=== PATIENT | male | born 1930 | race Caucasian/White ===

== ENCOUNTER 2018-07-27 07:57 | Emergency (ER) | payer MEDICARE, BC ==
[~2018-07-27] VITALS: Ht 175.3 cm; Wt 69.0 kg
[~2018-07-27 07:57] MED LIST: ALBU90OI61 INH; Amlodipine-Ben1 EAC3 PO; Aspir 8181 MG PO; BENAML10/2 PO; BETA.25.45 BOTHEYES; DIGESTIVE ENZY1 EACH PO; ERGO400 PO; Eye Drops15 ML; Glucosamine H1500 MG PO; MULVITMIND PO; Multiple Vitam1 EAC1 PO; Nexium40 MG PO; OMEG1CAP30; OMEG1CAP30 PO; OMEP20ER PO; Saw Palmetto160 MG PO
[2018-07-27 08:57] LABS: BASOPHILS ABSOLUTE AUTO 0.05 K/mm3 (0.00-0.23); BASOPHILS PERCENT AUTO 1 % (0-2); EOSINOPHILS ABSOLUTE AUTO 0.25 K/mm3 (0.00-0.68); EOSINOPHILS PERCENT AUTO 3 % (0-6); Hematocrit 40.3 % (37.0-53.0); Hemoglobin 13.4 g/dL (13.5-17.5); IMMATURE GRAN ABSOLUTE AUTO 0.05 K/mm3 (0.00-0.10); IMMATURE GRAN PERCENT AUTO 1 % (0-1); LYMPHOCYTES ABSOLUTE AUTO 1.01 K/mm3 (0.84-5.20); LYMPHOCYTES PERCENT AUTO 11 % (21-46); MONOCYTES ABSOLUTE AUTO 0.88 K/mm3 (0.16-1.47); MONOCYTES PERCENT AUTO 10 % (4-13); Mean Corpuscular HGB 31.1 pg (26.0-34.0); Mean Corpuscular HGB Conc 33.3 g/dL (31.5-36.5); Mean Corpuscular Volume 94 fL (80-100); Mean Platelet Volume 9.8 fL (9.1-12.4); NEUTROPHILS ABSOLUTE AUTO 7.03 K/mm3 (1.96-9.15); NEUTROPHILS PERCENT AUTO 76 % (41-73); Platelet Count 327 K/mm3 (150-400); RDW Coefficient Variation 13.2 % (11.7-14.2); RDW Standard Deviation 45.7 fL (35.1-46.3); Red Blood Cell Count 4.31 M/mm3 (4.30-5.90); White Blood Cell Count 9.27 K/mm3 (4.00-11.30)
[2018-07-27 09:22] LABS: Alanine Aminotransfer (ALT/SGP 31 U/L (12-78); Albumin, Blood 3.8 g/dL (3.4-5.0); Alk Phos 112 U/L (50-136); Anion Gap 8 mmol/L (6-16); Aspartate Aminotrans (AST/SGOT 24 U/L (12-37); Bilirubin, Total 0.8 mg/dL (0.1-1.0); Blood Urea Nitrogen 14 mg/dL (8-24); Bun/Creatinine Ratio 24.1 (12.0-20.0); CO2, Blood 28 mmol/L (21-32); Calcium, Blood 9.1 mg/dL (8.5-10.1); Chloride, Blood 97 mmol/L (98-108); Creatinine, Blood 0.58 mg/dL (0.60-1.20); Globulin, Blood 3.8 g/dL (2.2-4.0); Glomerular Filtration Rate >60 (60-); Glucose, Blood 102 mg/dL (70-99); Sodium, Blood 133 mmol/L (136-145); Total Protein, Blood 7.6 g/dL (6.4-8.2); Troponin I <0.015 ng/mL (0.000-0.040)
--- NOTE | 2018-07-27 10:35 | NUR ---
SPiritual care visit conducted. Patient is known to this machine sign writer. Patient was lying in bed and alert when I entered the room. Spouse, Racheal, was bedside and anxious. I provided a calming present, companionship and emotional support. Patient and Racheal responded well and showed signs of reduced stress.
== END 2018-07-27 10:28 | disposition home or self-care (01) ==
LOC: ER 07:57
PROVIDERS: Emergency Medicine
DX: G45.9 Transient cerebral ischemic attack, unspecified (principal); I10 Essential (primary) hypertension; Z88.0 Allergy status to penicillin; Z79.899 Other long term (current) drug therapy; Z79.82 Long term (current) use of aspirin
CPT/HCPCS: 36415; 70450; 80053; 84484; 85025; 93005; 93010; 99284-25

== ENCOUNTER 2019-05-03 06:04 | Day surgery (SDC) | payer MEDICARE, BC ==
[~2019-05-03] VITALS: Ht 175.3 cm; Wt 74.0 kg
[~2019-05-03 06:04] MED LIST changes: +CLOP75 PO; +ESOM20 PO; +HYDCHL25 PO; +LOSA50 PO
--- NOTE | 2019-05-03 10:45 | NUR ---
ARRIVAL TO ICU 1030 - PT ARRIVED AT THIS TIME FROM ALUMINUM SIDING MECHANIC. DENIES CHEST PAIN. FEMSTOP SECURED WITH NO DRESSING UNDER; WILL APPLY WHEN FEMSTOP REMOVED. TR BAND AND ARMBOARD SECURED ON R WRIST. PULSES PRESENT IN BLE AND R WRIST. BP ELEVATED WITH SBP 180S-190S. AFTER DIFFICULT INSERTION OF LAIRD CATHETER, BP DECREASED TO SBP 140-160. IV SALINE LOCKED. WILL CONTINUE TO MONITOR.
[2019-05-03 11:48] LABS: Source, Urine Catheter
[2019-05-03 11:56] LABS: Appearance, Urine Clear (Clear); Bilirubin, Urine Neg (Neg); Blood, Urine 5+ (Neg); Color, Urine Yellow (P-Yellow); Glucose Qualitative, Urine Neg (Neg); Ketones, Urine 1+ (Neg); Leukocyte Esterase, Urine Neg (Neg); Nitrite, Urine Neg (Neg); Protein, Urine Neg (Neg); Urobilinogen, Urine NORM (Normal)
[2019-05-03 12:05] LABS: Bacteria Few /hpf; Red Blood Cells, Urine 50-100 /hpf (0-2); Squamous Epithelial Cells Not Seen /hpf (Few); White Blood Cells, Urine 0-2 /hpf (0-5)
--- NOTE | 2019-05-03 13:40 | NUR ---
REASSESSMENT ATTEMPTED TO DEFLATE FEMSTOP BUT EACH TIME, THERE IS CONTINUAL OOZING FROM GROIN SITE. PT HAS DEVELOPED HEMATOMA BELOW FEMSTOP. THERE IS NO ABDOMINAL DISTENTION, HARDNESS, OR HEMATOMA IN LOWER ABDOMEN. ATTEMPTED TO DEFLATE TR BAND BUT CONTINUES TO OOZE. WILL CONTINUE TO MONITOR.
--- NOTE | 2019-05-03 15:56 | NUR ---
REASSESSMENT FEM STOP AND TR BAND REMOVED AT 1545. STABLE HEMATOMA UNDER ACCESS SITE ON R GROIN. CLEANED AND DRESSING APPLIED TO R GROIN AND R WRIST. TR BAND SECURED AND PT EDUCATED ON NOT MOVING R LEG OR R ARM. VSS. WILL CONTINUE TO MONITOR. PT CONTINUES TO DENY PAIN.
--- NOTE | 2019-05-03 18:07 | NUR ---
SHIFT SUMMARY PT NOW SITTING IN BED WITH HOB ELEVATED TO EAT DINNER. R GROIN SITE STABLE AND DRESSING REMAINS DRY AND INTACT. PEDAL PULSES PRESENT. R WRIST SITE CLEAN AND DRY WITH ARMBOARD SECURED. VISITING WITH SON AT BEDSIDE. VSS. WILL GIVE BEDSIDE, HANDOFF REPORT TO HERMINIA RN.
--- NOTE | 2019-05-03 19:32 | NUR ---
ASSUMED CARE OF PT AT 1910, STABLE, RIGHT WRIST AND RIGHT GROIN SITE WNL.
--- NOTE | 2019-05-04 07:04 | NUR ---
PT DENIES PAIN, SOB OR CHEST PAIN. LAIRD IN PLACE, VITAL SIGNS WNL, GROIN SITE DRY CLEAN INTACT, WRIST C/D/I. NO ACUTE EVENTS OVENIGHT WILL CONTINUE TO MONITOR
[2019-05-04] MEDS ORDERED: ASPI81CH PO (10:04)
== END 2019-05-04 11:06 | disposition home or self-care (01) ==
LOC: MHTC 06:04 → ICUE 10:17 → MHTC 10:43 → ICUE 10:43 → MHTC 05-04 11:06
PROVIDERS: Internal Medicine Interventional Cardiology
PROC: B241ZZ3 Ultrasonography of Multiple Coronary Arteries, Intravascular (ICD-10-PCS; principal; 2019-05-03)
PROC: 027135Z Dilation of Coronary Artery, Two Arteries with Two Drug-eluting Intraluminal Devices, Percutaneous Approach (ICD-10-PCS; principal; 2019-05-03)
DX: I35.0 Nonrheumatic aortic (valve) stenosis (principal); I10 Essential (primary) hypertension; Z79.02 Long term (current) use of antithrombotics/antiplatelets; Z79.899 Other long term (current) drug therapy; Z90.49 Acquired absence of other specified parts of digestive tract; Z86.73 Personal history of transient ischemic attack (TIA), and cerebral infarction without residual deficits; Z88.0 Allergy status to penicillin
CPT/HCPCS: 51703; 81001; 85347; 92920; 92978; 93454; 93571; 96372; 99152; 99153; C1725; C1753; C1760; C1769; C1874; C1887; C1894; C9600; G0378; J1644; J2250; J3010; J3246; J7030; Q9967

== ENCOUNTER 2019-09-02 14:50 | Emergency (ER) | payer MEDICARE, BC ==
[~2019-09-02] VITALS: Ht 170.2 cm; Wt 70.3 kg
[~2019-09-02 14:50] MED LIST changes: +ASPI81CH PO
[2019-09-02 16:44] LABS: BASOPHILS ABSOLUTE AUTO 0.03 K/mm3 (0.00-0.23); BASOPHILS PERCENT AUTO 0 % (0-2); EOSINOPHILS ABSOLUTE AUTO 0.36 K/mm3 (0.00-0.68); EOSINOPHILS PERCENT AUTO 5 % (0-6); Hematocrit 29.3 % (37.0-53.0); Hemoglobin 9.8 g/dL (13.5-17.5); IMMATURE GRAN ABSOLUTE AUTO 0.04 K/mm3 (0.00-0.10); IMMATURE GRAN PERCENT AUTO 1 % (0-1); LYMPHOCYTES ABSOLUTE AUTO 1.51 K/mm3 (0.84-5.20); LYMPHOCYTES PERCENT AUTO 21 % (21-46); MONOCYTES ABSOLUTE AUTO 0.78 K/mm3 (0.16-1.47); MONOCYTES PERCENT AUTO 11 % (4-13); Mean Corpuscular HGB 31.4 pg (26.0-34.0); Mean Corpuscular HGB Conc 33.4 g/dL (31.5-36.5); Mean Corpuscular Volume 94 fL (80-100); Mean Platelet Volume 10.4 fL (9.1-12.4); NEUTROPHILS ABSOLUTE AUTO 4.61 K/mm3 (1.96-9.15); NEUTROPHILS PERCENT AUTO 63 % (41-73); Platelet Count 219 K/mm3 (150-400); RDW Coefficient Variation 14.8 % (11.7-14.2); RDW Standard Deviation 49.5 fL (35.1-46.3); Red Blood Cell Count 3.12 M/mm3 (4.30-5.90); White Blood Cell Count 7.33 K/mm3 (4.00-11.30)
[2019-09-02 16:59] LABS: International Normalized Ratio 1.04; Prothrombin Time Results 11.1 Sec (9.7-11.5)
[2019-09-02 17:00] LABS: Anion Gap 4 mmol/L (6-16); Blood Urea Nitrogen 16 mg/dL (8-24); Bun/Creatinine Ratio 25.6 (12.0-20.0); CO2, Blood 29 mmol/L (21-32); Calcium, Blood 8.7 mg/dL (8.5-10.1); Chloride, Blood 98 mmol/L (98-108); Creatinine, Blood 0.62 mg/dL (0.60-1.20); Glomerular Filtration Rate >60 (60-); Glucose, Blood 98 mg/dL (70-99); Potassium, Blood 3.9 mmol/L (3.5-5.5); Sodium, Blood 131 mmol/L (136-145)
== END 2019-09-02 17:26 | disposition short-term general hospital (02) ==
LOC: ER 14:50
PROVIDERS: Emergency Medicine
DX: I72.4 Aneurysm of artery of lower extremity (principal); I10 Essential (primary) hypertension; Z88.0 Allergy status to penicillin; Z79.899 Other long term (current) drug therapy; Z79.82 Long term (current) use of aspirin; Z79.02 Long term (current) use of antithrombotics/antiplatelets
CPT/HCPCS: 80048; 85025; 85610; 93926; 93971; 99284-25

== ENCOUNTER 2020-04-15 14:16 | Emergency (ER) | payer MEDICARE, BC ==
[~2020-04-15] VITALS: Ht 175.3 cm; Wt 74.8 kg
[2020-04-15 14:43] LABS: BASOPHILS ABSOLUTE AUTO 0.11 K/mm3 (0.00-0.23); BASOPHILS PERCENT AUTO 1 % (0-2); EOSINOPHILS ABSOLUTE AUTO 0.44 K/mm3 (0.00-0.68); EOSINOPHILS PERCENT AUTO 3 % (0-6); Hematocrit 35.6 % (37.0-53.0); Hemoglobin 11.6 g/dL (13.5-17.5); IMMATURE GRAN ABSOLUTE AUTO 0.19 K/mm3 (0.00-0.10); IMMATURE GRAN PERCENT AUTO 1 % (0-1); LYMPHOCYTES ABSOLUTE AUTO 4.49 K/mm3 (0.84-5.20); LYMPHOCYTES PERCENT AUTO 27 % (21-46); MONOCYTES ABSOLUTE AUTO 1.39 K/mm3 (0.16-1.47); MONOCYTES PERCENT AUTO 8 % (4-13); Mean Corpuscular HGB Conc 32.6 g/dL (31.5-36.5); Mean Corpuscular Volume 95 fL (80-100); Mean Platelet Volume 10.4 fL (9.1-12.4); NEUTROPHILS ABSOLUTE AUTO 9.87 K/mm3 (1.96-9.15); NEUTROPHILS PERCENT AUTO 60 % (41-73); Platelet Count 267 K/mm3 (150-400); RDW Coefficient Variation 13.2 % (11.7-14.2); RDW Standard Deviation 46.4 fL (35.1-46.3); Red Blood Cell Count 3.74 M/mm3 (4.30-5.90); White Blood Cell Count 16.49 K/mm3 (4.00-11.30)
[2020-04-15 15:10] LABS: International Normalized Ratio 1.07; Prothrombin Time Results 11.4 Sec (9.7-11.5)
[2020-04-15 15:13] LABS: Alanine Aminotransfer (ALT/SGP 34 U/L (12-78); Albumin, Blood 3.8 g/dL (3.4-5.0); Albumin/Globulin Ratio 1.2 (0.8-1.8); Alk Phos 95 U/L (50-136); Anion Gap 8 mmol/L (6-16); Aspartate Aminotrans (AST/SGOT 39 U/L (12-37); Bilirubin, Total 0.5 mg/dL (0.1-1.0); Blood Urea Nitrogen 15 mg/dL (8-24); Bun/Creatinine Ratio 22.2 (12.0-20.0); CO2, Blood 28 mmol/L (21-32); Calcium, Blood 8.7 mg/dL (8.5-10.1); Chloride, Blood 98 mmol/L (98-108); Creatinine, Blood 0.68 mg/dL (0.60-1.20); Globulin, Blood 3.1 g/dL (2.2-4.0); Glomerular Filtration Rate >60 (60-); Glucose, Blood 139 mg/dL (70-99); Sodium, Blood 134 mmol/L (136-145); Total Protein, Blood 6.9 g/dL (6.4-8.2)
[2020-04-15 15:14] LABS: Source, Urine Clean Catch
[2020-04-15 15:18] LABS: Appearance, Urine Hazy (Clear); Bilirubin, Urine Neg (Neg); Blood, Urine 5+ (Neg); Color, Urine Yellow (P-Yellow); Glucose Qualitative, Urine Neg (Neg); Ketones, Urine Neg (Neg); Leukocyte Esterase, Urine 1+ (Neg); Nitrite, Urine Neg (Neg); Protein, Urine 2+ (Neg); Urobilinogen, Urine NORM (Normal)
[2020-04-15 15:26] LABS: Bacteria Few /hpf; Red Blood Cells, Urine TNTC /hpf (0-2); Squamous Epithelial Cells Rare /hpf (Few); White Blood Cells, Urine 0-2 /hpf (0-5)
[2020-04-15 15:27] LABS: Transitional Epithelial Cells Few /hpf (0-Rare)
--- NOTE | 2020-04-15 15:47 | NUR ---
I am waiting in ER when patient arrives by ambulance. As the gurmine is brought in I realize it is this press writer's father. I speak comforting words to patient as ER staff work on him in ER 26. I go to ER waiting rm and bring patient's spouse, Gosia, back to ER consult rm. I provide emotional support and prayer. Gosia responds well but is experiencing the trauma of discoving patient on the ground in a pool of blood. I continue to offer support to Gosia and then to other family members as they arrive. I stay with the family until Patient is airlifted to [facility]. Dr. Gunn and the entire ER staff continually amaze with their excellence and compassion.
[2020-04-15 15:52] LABS: Influenza A, PCR Negative (NEGATIVE); Influenza B, PCR Negative (NEGATIVE); Resp Syncytial Virus, PCR Negative (NEGATIVE); SARS-Cov-2 (COVID-19) PCR, MMC Negative (NEGATIVE)
== END 2020-04-15 15:15 | disposition short-term general hospital (02) ==
LOC: ER 14:16
PROVIDERS: Emergency Medicine
DX: S82.251A Displaced comminuted fracture of shaft of right tibia, initial encounter for closed fracture (principal); S82.451A Displaced comminuted fracture of shaft of right fibula, initial encounter for closed fracture; Z20.828 Contact with and (suspected) exposure to other viral communicable diseases; Z88.0 Allergy status to penicillin; Z79.82 Long term (current) use of aspirin; Z79.02 Long term (current) use of antithrombotics/antiplatelets; Z79.899 Other long term (current) drug therapy; Z87.891 Personal history of nicotine dependence; W20.8XXA Other cause of strike by thrown, projected or falling object, initial encounter
CPT/HCPCS: 0241U; 29505; 31500; 51702; 71045; 73590; 80053; 81001; 82550; 83690; 85025; 85610; 87086; 94002; 94770; 96374-59; 99285-25; J2704; J3010; L0160